=== PATIENT | male | born 1995 | race Native Hawaiian/Other Pacific Islander ===

== ENCOUNTER 2018-03-27 23:04 | Inpatient (IN) | payer OTHER ==
[2018-03-28 00:54] LABS: HEMATOCRIT 46.1 % (42.0-52.0); HEMOGLOBIN 16.2 g/dl (13.5-17.5); MEAN CORPUSCULAR HEMOGLOBIN 30.5 pg (27.0-33.0); MEAN CORPUSCULAR HGB CONC 35.1 g/dl (32.0-36.5); MEAN CORPUSCULAR VOLUME 86.7 fl (80.0-96.0); PLATELET COUNT, AUTOMATED 240 10^3/uL (150-450); RED BLOOD COUNT 5.32 10^6/uL (4.30-6.10); RED CELL DISTRIBUTION WIDTH 11.9 % (11.5-14.5); WHITE BLOOD COUNT 8.7 10^3/uL (4.0-10.0)
[2018-03-28 01:08] LABS: AMPHETAMINES LEVEL URINE NEGATIVE (NEGATIVE); BARBITURATES URINE NEGATIVE (NEGATIVE); BENZODIAZEPINES URINE NEGATIVE (NEGATIVE); CANNABINOIDS URINE NEGATIVE (NEGATIVE); COCAINE METABOLITE URINE NEGATIVE (NEGATIVE); METHADONE URINE NEGATIVE (NEGATIVE); OPIATES URINE NEGATIVE (NEGATIVE); PHENCYCLIDINE URINE NEGATIVE (NEGATIVE)
[2018-03-28 01:23] LABS: ALBUMIN 4.1 GM/DL (3.2-5.2); ALBUMIN/GLOBULIN RATIO 1.24 (1.00-1.93); ALKALINE PHOSPHATASE 70 U/L (45-117); ALT/SGPT 45 U/L (12-78); ANION GAP 11 MEQ/L (8-16); AST/SGOT 22 U/L (7-37); BILIRUBIN,DIRECT 0.2 MG/DL (0.0-0.2); BILIRUBIN,TOTAL 0.9 MG/DL (0.2-1.0); BLOOD UREA NITROGEN 15 MG/DL (7-18); CALCIUM LEVEL 8.8 MG/DL (8.5-10.1); CARBON DIOXIDE LEVEL 24 MEQ/L (21-32); CHLORIDE LEVEL 106 MEQ/L (98-107); ETHYL ALCOHOL (ETHANOL) 0.066 % (0.000-0.010); GLOMERULAR FILTRATION RATE > 60.0 (>60); GLUCOSE, FASTING 113 MG/DL (70-100); SALICYLATE LEVEL < 1.7 MG/DL (5.0-30.0); SODIUM LEVEL 141 MEQ/L (136-145); TOTAL PROTEIN 7.4 GM/DL (6.4-8.2)
[2018-03-28 01:24] LABS: ACETAMINOPHEN LEVEL < 2.0 UG/ML (10.0-30.0)
[2018-03-28] MEDS ORDERED: MAALOX 30 ML SUSP *UDC PO (02:15)
[2018-03-28] MEDS ORDERED: MOM 30ML SUSPENSION UDC PO (02:15)
[2018-03-28] MEDS ORDERED: ACETAMINOPHEN TAB 650MG DOSE (2X325MG) PO (02:15)
[2018-03-28] MEDS: NICOTINE 21MG/24HR 1 EA TRANSDERMAL TD (08:20)
[2018-03-28] MEDS: busPIRone 5 MG TAB PO ×3 (09:00→21:21)
[2018-03-28] MEDS ORDERED: hydrOXYzine 50 MG TAB PO (12:00)
[2018-03-28] MEDS: SERTRALINE 100 MG TAB PO (17:17)
[2018-03-28] MEDS: ATOMOXETINE HCL 40 MG CAP (STRATTERA) PO (17:18)
[2018-03-28] MEDS: RAMELTEON 8 MG TAB (ROZEREM) PO (21:20)
[2018-03-29] MEDS: ATOMOXETINE HCL 40 MG CAP (STRATTERA) PO (08:20)
[2018-03-29] MEDS: SERTRALINE 100 MG TAB PO (08:20)
[2018-03-29] MEDS: busPIRone 5 MG TAB PO ×3 (08:20→22:17)
[2018-03-29] MEDS: INFLUENZA QUADRIVALENT PF VACCINE 0.5ML SYRINGE (90686) IM (08:21)
[2018-03-29] MEDS: NICOTINE 21MG/24HR 1 EA TRANSDERMAL TD (09:54)
[2018-03-29] MEDS: RAMELTEON 8 MG TAB (ROZEREM) PO (22:17)
[2018-03-29] MEDS: OLANZapine 5 MG TAB PO (23:28)
[2018-03-30] MEDS: ATOMOXETINE HCL 40 MG CAP (STRATTERA) PO (08:44)
[2018-03-30] MEDS: busPIRone 5 MG TAB PO ×3 (08:44→21:00)
[2018-03-30] MEDS: SERTRALINE 100 MG TAB PO (08:44)
[2018-03-30] MEDS: RAMELTEON 8 MG TAB (ROZEREM) PO (21:00)
[2018-03-31] MEDS: busPIRone 5 MG TAB PO ×3 (09:08→22:42)
[2018-03-31] MEDS: SERTRALINE 100 MG TAB PO (09:08)
[2018-03-31] MEDS: ATOMOXETINE HCL 40 MG CAP (STRATTERA) PO (09:08)
[2018-03-31] MEDS: NICOTINE 21MG/24HR 1 EA TRANSDERMAL TD (12:10)
[2018-03-31] MEDS: RAMELTEON 8 MG TAB (ROZEREM) PO (22:42)
[2018-04-01] MEDS: ATOMOXETINE HCL 40 MG CAP (STRATTERA) PO (09:10)
[2018-04-01] MEDS: SERTRALINE 100 MG TAB PO (09:10)
[2018-04-01] MEDS: busPIRone 5 MG TAB PO ×3 (09:10→22:34)
[2018-04-01] MEDS: NICOTINE 21MG/24HR 1 EA TRANSDERMAL TD (14:31)
[2018-04-01] MEDS: RAMELTEON 8 MG TAB (ROZEREM) PO (22:33)
[2018-04-02] MEDS: ATOMOXETINE HCL 40 MG CAP (STRATTERA) PO (09:14)
[2018-04-02] MEDS: busPIRone 5 MG TAB PO (09:14)
[2018-04-02] MEDS: SERTRALINE 100 MG TAB PO (09:14)
== END 2018-04-02 15:30 | disposition home or self-care (01) | DRG 885 ==
LOC: M ED 23:04 → M ED INP 03-28 02:08 → M PSY 03-28 02:30
DX: F33.9 Major depressive disorder, recurrent, unspecified (principal); F41.9 Anxiety disorder, unspecified; G47.00 Insomnia, unspecified; Z79.899 Other long term (current) drug therapy; Z63.8 Other specified problems related to primary support group; Z91.5 Personal history of self-harm

== ENCOUNTER 2018-04-24 02:30 | Inpatient (IN) | payer OTHER ==
[2018-04-24 03:21] LABS: HEMATOCRIT 44.9 % (42.0-52.0); HEMOGLOBIN 15.5 g/dl (13.5-17.5); MEAN CORPUSCULAR HEMOGLOBIN 30.7 pg (27.0-33.0); MEAN CORPUSCULAR HGB CONC 34.5 g/dl (32.0-36.5); MEAN CORPUSCULAR VOLUME 88.9 fl (80.0-96.0); PLATELET COUNT, AUTOMATED 224 10^3/uL (150-450); RED BLOOD COUNT 5.05 10^6/uL (4.30-6.10); RED CELL DISTRIBUTION WIDTH 12.2 % (11.5-14.5); WHITE BLOOD COUNT 8.4 10^3/uL (4.0-10.0)
[2018-04-24 03:43] LABS: AMPHETAMINES LEVEL URINE NEGATIVE (NEGATIVE); BARBITURATES URINE NEGATIVE (NEGATIVE); BENZODIAZEPINES URINE NEGATIVE (NEGATIVE); CANNABINOIDS URINE NEGATIVE (NEGATIVE); COCAINE METABOLITE URINE NEGATIVE (NEGATIVE); METHADONE URINE NEGATIVE (NEGATIVE); OPIATES URINE NEGATIVE (NEGATIVE); PHENCYCLIDINE URINE NEGATIVE (NEGATIVE)
[2018-04-24 03:52] LABS: ALBUMIN 3.9 GM/DL (3.2-5.2); ALKALINE PHOSPHATASE 102 U/L (45-117); ALT/SGPT 31 U/L (12-78); ANION GAP 11 MEQ/L (8-16); AST/SGOT 18 U/L (7-37); BILIRUBIN,DIRECT 0.1 MG/DL (0.0-0.2); BILIRUBIN,TOTAL 0.8 MG/DL (0.2-1.0); BLOOD UREA NITROGEN 15 MG/DL (7-18); CALCIUM LEVEL 8.4 MG/DL (8.5-10.1); CARBON DIOXIDE LEVEL 23 MEQ/L (21-32); CHLORIDE LEVEL 110 MEQ/L (98-107); CREATININE FOR GFR 0.97 MG/DL (0.70-1.30); ETHYL ALCOHOL (ETHANOL) 0.086 % (0.000-0.010); GLOMERULAR FILTRATION RATE > 60.0 (>60); GLUCOSE, FASTING 134 MG/DL (70-100); POTASSIUM SERUM 3.8 MEQ/L (3.5-5.1); SALICYLATE LEVEL < 1.7 MG/DL (5.0-30.0); SODIUM LEVEL 144 MEQ/L (136-145); TOTAL PROTEIN 6.9 GM/DL (6.4-8.2)
[2018-04-24 03:55] LABS: ACETAMINOPHEN LEVEL < 2.0 UG/ML (10.0-30.0)
[2018-04-24] MEDS ORDERED: hydrOXYzine 50 MG TAB PO (06:15)
[2018-04-24] MEDS ORDERED: ACETAMINOPHEN TAB 650MG DOSE (2X325MG) PO (06:15)
[2018-04-24] MEDS ORDERED: MAALOX 30 ML SUSP *UDC PO (06:15)
[2018-04-24] MEDS ORDERED: MOM 30ML SUSPENSION UDC PO (06:15)
[2018-04-24] MEDS: busPIRone 5 MG TAB PO ×3 (09:00→20:20)
[2018-04-24] MEDS: SERTRALINE 100 MG TAB PO (09:00)
[2018-04-24] MEDS: DOXEPIN 25 MG CAP PO (20:20)
[2018-04-25] MEDS: busPIRone 5 MG TAB PO ×3 (09:32→20:59)
[2018-04-25] MEDS: SERTRALINE HCL 50 MG TAB PO (09:33)
[2018-04-25] MEDS: DOXEPIN 25 MG CAP PO (20:59)
[2018-04-26] MEDS: SERTRALINE HCL 50 MG TAB PO (09:31)
[2018-04-26] MEDS: busPIRone 5 MG TAB PO ×3 (09:31→21:44)
[2018-04-26] MEDS: DOXEPIN 25 MG CAP PO (21:44)
[2018-04-26] MEDS: traZODone 50 MG TAB PO (22:59)
[2018-04-27] MEDS: busPIRone 5 MG TAB PO ×3 (08:43→21:34)
[2018-04-27] MEDS: SERTRALINE HCL 50 MG TAB PO (08:43)
[2018-04-27] MEDS: DOXEPIN 25 MG CAP PO (21:34)
[2018-04-27] MEDS: traZODone 50 MG TAB PO (23:00)
[2018-04-28] MEDS: busPIRone 5 MG TAB PO ×3 (08:28→21:53)
[2018-04-28] MEDS: SERTRALINE HCL 50 MG TAB PO (08:28)
[2018-04-28] MEDS: DOXEPIN 25 MG CAP PO (21:53)
[2018-04-28] MEDS: traZODone 50 MG TAB PO (23:02)
[2018-04-29] MEDS: busPIRone 5 MG TAB PO (08:47)
[2018-04-29] MEDS: SERTRALINE HCL 50 MG TAB PO (08:47)
== END 2018-04-29 11:54 | disposition home or self-care (01) | DRG 885 ==
LOC: M PSY 04-25 21:39 → M ED 02:30 → M ED INP 06:01 → M PSY 07:57
DX: F33.1 Major depressive disorder, recurrent, moderate (principal); F41.9 Anxiety disorder, unspecified; F10.182 Alcohol abuse with alcohol-induced sleep disorder; F17.290 Nicotine dependence, other tobacco product, uncomplicated; Z62.810 Personal history of physical and sexual abuse in childhood; Z62.811 Personal history of psychological abuse in childhood; Z79.899 Other long term (current) drug therapy

== ENCOUNTER → 2018-07-01 | Outpatient (CLI) | payer OTHER | LOC: M SLEEP 19:33 | DX: R40.0 Somnolence (principal) | CPT/HCPCS: 95810 ==